=== PATIENT | female | born 1990 | race Caucasian/White ===

== ENCOUNTER 2018-04-03 18:15 | Emergency (ER) | payer SELFPAY ==
[~2018-04-03] VITALS: Ht 175.3 cm; Wt 54.4 kg
[2018-04-03 18:15] VITALS: BP 109/76
[2018-04-03 19:01] LABS: BASOPHILS % (AUTO) 0.3 % (0.0-2.0); EOSINOPHILS % (AUTO) 2.2 % (0.0-6.0); HEMATOCRIT 39 % (33-45); HEMOGLOBIN 13.1 g/dL (11.5-14.8); LYMPHOCYTES # (AUTO) 1.8 /CMM (0.8-4.8); LYMPHOCYTES % (AUTO) 23.4 % (20.0-44.0); MEAN CORPUSCULAR HGB CONC 34 g/dl (31.0-36.0); MEAN CORPUSCULAR VOLUME 92 fL (82-100); MONOCYTES # (AUTO) 0.5 /CMM (0.1-1.30); MONOCYTES % (AUTO) 6.3 % (2.0-12.0); NEUTROPHILS # (AUTO) 5.4 /CMM (1.8-8.9); NEUTROPHILS % (AUTO) 67.8 % (43.0-81.0); PLATELET COUNT (AUTO) 196 /CMM (150-450); RDW COEFFICIENT OF VARIATION 12.7 (11.5-15.0); RED BLOOD CELL COUNT(AUTO) 4.22 MIL/uL (4.0-5.2); WHITE BLOOD COUNT (AUTO) 7.9 K/uL (4.3-11.0)
--- NOTE | 2018-04-03 19:20 | NUR ---
PT UNABLE TO PROVIDE URINE AT THIS TIME.
--- NOTE | 2018-04-03 19:25 | NUR ---
PAGED RN LIAISON HERMAN [facility]LE[place]. LEFT.
--- NOTE | 2018-04-03 19:28 | NUR ---
RECEIVED CALL FROM LAB, PT'S BLOOD TYPE IS A+, NOT A CANDIDATE FOR RHOGAM
--- NOTE | 2018-04-03 19:39 | NUR ---
HERMAN AT BEDSIDE FOR US PELVIC
--- NOTE | 2018-04-03 20:33 | NUR ---
Patient discharged to home in stable condition. Written and verbal after care instructions given. Patient verbalizes understanding of instruction. ambulatory with a steady gait. accompanied by friend
== END 2018-04-03 20:35 | disposition home or self-care (01) ==
LOC: ER 18:17
DX: O20.9 Hemorrhage in early pregnancy, unspecified (principal)
CPT/HCPCS: 36415; 76856; 84702; 85025; 99285; A4606; Z7610